=== PATIENT | female | born 1955 | race Caucasian/White ===

== ENCOUNTER → 2017-12-03 | Outpatient (CLI) | payer OTHER ==
[~2017-12-03] MED LIST: ALLERGY RELIEF10 M1 PO; ANAPROX DS550 MG PO; ASPIRIN ADULT L81 M1 PO; ATENOLOL50 MG PO; DAYPRO600 M1 PO; IBUPROFEN800 MG PO; MOTRIN800 MG PO; PROZAC20 MG PO; RANITIDINE300 MG PO; SEPTRA DS 800 M1 TAB PO; SYNTHROID0.075 MG PO; VICODIN 500 MG-1 TAB PO
== END | disposition home or self-care (01) ==
LOC: MAMMO 07:18
DX: Z12.31 Encounter for screening mammogram for malignant neoplasm of breast (principal)

== ENCOUNTER 2020-10-09 11:22 | Inpatient (IN) | payer OTHER ==
[~2020-10-09] VITALS: Ht 170.1 cm; Wt 136.1 kg
[2020-10-09 11:28] VITALS: BP 150/67
[2020-10-09] MEDS ORDERED: OMEPRAZOLE20 M3 PO (11:43)
[2020-10-09] MEDS ORDERED: OXYBUTYNIN5 MG PO (11:44)
[2020-10-09] MEDS ORDERED: GABAPENTIN600 MG PO (11:45)
[2020-10-09 12:00] LABS: BASO % 0.2 % (0.0-1.0); EOS # 0.1 10*3/uL (0.0-0.4); EOS % 1.6 % (1.0-4.0); HEMATOCRIT 39.3 % (37.0-47.0); LYMPH # 0.7 10*3/uL (1.3-4.4); MEAN CELL VOLUME 91.2 fl (81.0-99.0); MEAN CORPUSCULAR HGB CONC 31.8 g/dl (33.0-37.0); MEAN PLATELET VOLUME 9.6 fl (9.6-12.3); MONO # 0.5 10*3/uL (0.1-1.0); NEUT # 7.1 10*3/uL (2.3-7.9); NEUT % 83.8 % (47.0-73.0); PLATELET COUNT AUTOMATED 187 10*3/uL (130-400); RED BLOOD COUNT 4.31 10*6/uL (4.10-5.10); RED CELL DISTRI WIDTH 14.4 % (0-14.5); WHITE BLOOD COUNT 8.5 10*3/uL (4.8-10.8)
[2020-10-09 12:16] LABS: ALBUMIN 3.3 gm/dl (3.1-4.5); ALKALINE PHOSPHATASE 144 U/L (45-117); BUN 17 mg/dl (7-24); CHLORIDE 105 mmol/L (98-107); CREATININE 0.86 mg/dL (0.55-1.02); POTASSIUM 3.7 mmol/L (3.5-5.1); SGOT/AST 236 IU/L (3-35); SGPT/ALT 356 U/L (12-78); SODIUM 139 mmol/L (136-145); TOTAL PROTEIN 7.1 gm/dL (6.4-8.2)
[2020-10-09 12:25] LABS: BILIRUBIN 2+ (Negative); BLOOD Negative (Negative); CLARITY Cloudy (Clear); COLOR Dark Yellow (Yellow); GLUCOSE Negative (Negative); KETONE 1+ (Negative); LEUKO ESTERASE 2+ (Negative); NITRITE Positive (Negative)
[2020-10-09 12:40] LABS: BACTERIA 4+; EPITHELIAL CELLS 31-40; WBC TNTC wbc/hpf (0-5)
[2020-10-09 15:30] VITALS: BP 141/89
[2020-10-09] MEDS ORDERED: LEADER NATUR1000 MCG PO (15:35)
[2020-10-09] MEDS ORDERED: BACLOFEN5 MG PO (15:36)
[2020-10-09] MEDS ORDERED: ESCITALOPRAM OX10 MG PO (15:37)
[2020-10-09] MEDS ORDERED: AVONEX PEN30 MCG/0.2 IM (15:39)
[2020-10-09] MEDS ORDERED: LORAZEPAM0.5 MG PO (15:39)
[2020-10-09 19:44] VITALS: BP 143/75
[2020-10-09 20:00] VITALS: BP 121/73; BP 151/67
[2020-10-09 22:28] VITALS: BP 157/67
[2020-10-10] VITALS: BP 145/66
[2020-10-10 05:19] LABS: ALKALINE PHOSPHATASE 120 U/L (45-117); BUN 13 mg/dl (7-24); CHLORIDE 106 mmol/L (98-107); CHOLESTEROL 181 mg/dL (<200); CREATININE 0.71 mg/dL (0.55-1.02); LDL CHOLESTEROL 117 mg/dL (9-159); LIPASE 1470 U/L (73-393); POTASSIUM 3.9 mmol/L (3.5-5.1); SGOT/AST 99 IU/L (3-35); SGPT/ALT 239 U/L (12-78); SODIUM 139 mmol/L (136-145); TOTAL PROTEIN 6.9 gm/dL (6.4-8.2); TRIGLYCERIDES 100 mg/dl (<150)
[2020-10-10 05:25] LABS: FREE T4 0.99 ng/dl (0.76-1.46)
[2020-10-10 05:43] VITALS: BP 156/75
[2020-10-10 06:03] LABS: BASO % 0.1 % (0.0-1.0); EOS % 0.4 % (1.0-4.0); HEMATOCRIT 37.7 % (37.0-47.0); LYMPH # 0.8 10*3/uL (1.3-4.4); LYMPH % 11.9 % (27.0-41.0); MEAN CELL VOLUME 93.5 fl (81.0-99.0); MONO # 0.4 10*3/uL (0.1-1.0); MONO % 5.5 % (3.0-9.0); NEUT # 5.8 10*3/uL (2.3-7.9); NEUT % 81.7 % (47.0-73.0); PLATELET COUNT AUTOMATED 169 10*3/uL (130-400); RED BLOOD COUNT 4.03 10*6/uL (4.10-5.10); RED CELL DISTRI WIDTH 14.5 % (0-14.5); WHITE BLOOD COUNT 7.1 10*3/uL (4.8-10.8)
[2020-10-10 07:28] LABS: VITAMIN D, 25-HYDROXY 53.2 ng/mL (30-100)
[2020-10-10 08:00] VITALS: BP 164/76
[2020-10-10 12:00] VITALS: BP 160/68
[2020-10-10 16:00] VITALS: BP 153/69
[2020-10-10 20:00] VITALS: BP 153/74
[2020-10-11] VITALS (10 sets, daily range): BP systolic 144–178; BP diastolic 71–96
[2020-10-11 06:22] LABS: ALBUMIN 3.2 gm/dl (3.1-4.5); CHLORIDE 106 mmol/L (98-107); POTASSIUM 3.7 mmol/L (3.5-5.1); SODIUM 138 mmol/L (136-145)
[2020-10-11 06:24] LABS: BASO % 0.2 % (0.0-1.0); EOS # 0.2 10*3/uL (0.0-0.4); EOS % 2.3 % (1.0-4.0); HEMATOCRIT 38.7 % (37.0-47.0); LYMPH # 0.9 10*3/uL (1.3-4.4); LYMPH % 14.1 % (27.0-41.0); MEAN CELL VOLUME 93.9 fl (81.0-99.0); MEAN CORPUSCULAR HGB 29.4 pg (27.0-31.0); MEAN CORPUSCULAR HGB CONC 31.3 g/dl (33.0-37.0); MONO # 0.4 10*3/uL (0.1-1.0); MONO % 6.3 % (3.0-9.0); NEUT # 4.9 10*3/uL (2.3-7.9); NEUT % 76.6 % (47.0-73.0); PLATELET COUNT AUTOMATED 194 10*3/uL (130-400); RED BLOOD COUNT 4.12 10*6/uL (4.10-5.10); RED CELL DISTRI WIDTH 14.2 % (0-14.5); WHITE BLOOD COUNT 6.4 10*3/uL (4.8-10.8)
[2020-10-11 06:28] LABS: ALKALINE PHOSPHATASE 107 U/L (45-117); BUN 12 mg/dl (7-24); CREATININE 0.78 mg/dL (0.55-1.02); SGOT/AST 40 IU/L (3-35); SGPT/ALT 157 U/L (12-78); TOTAL PROTEIN 7.1 gm/dL (6.4-8.2)
[2020-10-12] VITALS: BP 154/78
[2020-10-12 06:00] LABS: ALBUMIN 2.9 gm/dl (3.1-4.5); ALKALINE PHOSPHATASE 104 U/L (45-117); BUN 15 mg/dl (7-24); CHLORIDE 105 mmol/L (98-107); CREATININE 0.84 mg/dL (0.55-1.02); POTASSIUM 3.9 mmol/L (3.5-5.1); SGOT/AST 33 IU/L (3-35); SGPT/ALT 128 U/L (12-78); SODIUM 136 mmol/L (136-145); TOTAL PROTEIN 7.4 gm/dL (6.4-8.2)
[2020-10-12 06:18] LABS: BASO % 0.1 % (0.0-1.0); HEMATOCRIT 38.7 % (37.0-47.0); LYMPH # 0.9 10*3/uL (1.3-4.4); LYMPH % 7.8 % (27.0-41.0); MEAN CELL VOLUME 91.7 fl (81.0-99.0); MEAN CORPUSCULAR HGB 29.4 pg (27.0-31.0); MEAN PLATELET VOLUME 9.7 fl (9.6-12.3); MONO # 0.7 10*3/uL (0.1-1.0); MONO % 6.3 % (3.0-9.0); NEUT # 9.5 10*3/uL (2.3-7.9); NEUT % 84.9 % (47.0-73.0); PLATELET COUNT AUTOMATED 250 10*3/uL (130-400); RED BLOOD COUNT 4.22 10*6/uL (4.10-5.10); RED CELL DISTRI WIDTH 13.9 % (0-14.5); WHITE BLOOD COUNT 11.2 10*3/uL (4.8-10.8)
[2020-10-12 08:00] VITALS: BP 148/81
[2020-10-12] MEDS ORDERED: COLACE100 MG PO (09:37)
[2020-10-12] MEDS ORDERED: ZOFRAN4 MG PO (09:37)
[2020-10-12] MEDS ORDERED: HYDROCODONE-AC1 EAC1 PO (11:16)
[2020-10-12 12:00] VITALS: BP 144/74
== END 2020-10-12 13:13 | disposition home or self-care (01) | DRG 417 ==
LOC: ED 11:22 → EDHOLD 15:30 → 4E 15:30
PROVIDERS: Physician Assistant; Registered Nurse; ADMIT Family Medicine; ATTEND Family Medicine
PROC: 0FT44ZZ Resection of Gallbladder, Percutaneous Endoscopic Approach (ICD-10-PCS; principal; 2020-10-11)
PROC: BF141ZZ Fluoroscopy of Gallbladder, Bile Ducts and Pancreatic Ducts using Low Osmolar Contrast (ICD-10-PCS; 2020-10-11)
DX: K80.20 Calculus of gallbladder without cholecystitis without obstruction (principal); K85.10 Biliary acute pancreatitis without necrosis or infection; N30.00 Acute cystitis without hematuria; E44.0 Moderate protein-calorie malnutrition; Z68.42 Body mass index [BMI] 45.0-49.9, adult; K76.0 Fatty (change of) liver, not elsewhere classified; G35 Multiple sclerosis; N32.81 Overactive bladder; R74.01 Elevation of levels of liver transaminase levels; I10 Essential (primary) hypertension; E03.9 Hypothyroidism, unspecified; F41.1 Generalized anxiety disorder; R73.9 Hyperglycemia, unspecified; F32.9 Major depressive disorder, single episode, unspecified; K21.9 Gastro-esophageal reflux disease without esophagitis; Z90.49 Acquired absence of other specified parts of digestive tract; Z98.51 Tubal ligation status; Z80.3 Family history of malignant neoplasm of breast; Z91.040 Latex allergy status; Z91.013 Allergy to seafood; Z79.899 Other long term (current) drug therapy; Z79.82 Long term (current) use of aspirin

== ENCOUNTER → 2021-04-05 | Outpatient (CLI) | payer OTHER ==
[~2021-04-05] MED LIST changes: +AVONEX PEN30 MCG/0.2 IM; +BACLOFEN5 MG PO; +COLACE100 MG PO; +ESCITALOPRAM OX10 MG PO; +GABAPENTIN600 MG PO; +HYDROCODONE-AC1 EAC1 PO; +LEADER NATUR1000 MCG PO; +LORAZEPAM0.5 MG PO; +OMEPRAZOLE20 M3 PO; +OXYBUTYNIN5 MG PO; +ZOFRAN4 MG PO
== END | disposition home or self-care (01) ==
LOC: MRI 00:09
PROVIDERS: ATTEND Psychiatry & Neurology Neurology
DX: G35 Multiple sclerosis (principal)

== ENCOUNTER → 2023-11-05 | Outpatient (CLI) | payer OTHER | END | disposition home or self-care (01) | LOC: MRI 02:37 | PROVIDERS: ATTEND Psychiatry & Neurology Neurology | DX: M47.812 Spondylosis without myelopathy or radiculopathy, cervical region (principal); M48.02 Spinal stenosis, cervical region; M25.78 Osteophyte, vertebrae; G35 Multiple sclerosis ==